=== PATIENT | male | born 1975 | race Two or more races ===

== ENCOUNTER 2022-02-01 18:36 | Emergency (ER) | payer SELFPAY ==
[~2022-02-01] VITALS: Ht 170.2 cm; Wt 72.6 kg
[2022-02-01] MEDS ORDERED: LORAZEPAM 1 MG TABLET PO ONE (19:00)
[2022-02-01] MEDS ORDERED: LORAZEPAM 1 MG TABLET ONE (19:01)
--- NOTE | 2022-02-01 19:07 | NUR ---
Medicated as per orders. Labs drawn by [employer] driver
--- NOTE | 2022-02-01 19:28 | NUR ---
Endorsed care to [place]
[2022-02-01 19:53] LABS: BASOPHILS % (AUTO) 0.2 % (0.0-2.0); EOSINOPHILS % (AUTO) 0.9 % (0.0-6.0); HEMATOCRIT 38 % (39-51); HEMOGLOBIN 12.7 g/dL (13.5-17.5); LYMPHOCYTES # (AUTO) 1.6 K/uL (0.8-4.8); LYMPHOCYTES % (AUTO) 25.3 % (20.0-44.0); MEAN CORPUSCULAR HGB CONC 34 g/dl (31.0-36.0); MEAN CORPUSCULAR VOLUME 88 fL (80-96); MONOCYTES # (AUTO) 0.4 K/uL (0.1-1.30); MONOCYTES % (AUTO) 6.4 % (2.0-12.0); NEUTROPHILS # (AUTO) 4.3 K/uL (1.8-8.9); NEUTROPHILS % (AUTO) 67.2 % (43.0-81.0); PLATELET COUNT (AUTO) 183 K/uL (150-450); RED BLOOD CELL COUNT(AUTO) 4.33 MIL/uL (4.5-6.0); WHITE BLOOD COUNT (AUTO) 6.4 K/uL (4.3-11.0)
[2022-02-01] MEDS ORDERED: CYCL5TAB PO (20:21)
[2022-02-01] MEDS ORDERED: IBUP-1955 PO (20:21)
[2022-02-01] MEDS ORDERED: IBUPROFEN 600 MG TABLET PO ONE (20:30)
[2022-02-01] MEDS ORDERED: LORAZEPAM INJ 2 MG/ML VIAL IV ONE (20:30)
[2022-02-01] MEDS ORDERED: IBUPROFEN 600 MG TABLET ONE (20:30)
[2022-02-01 22:38] LABS: ALBUMIN 3.5 g/dL (3.4-5.0); BILIRUBIN,DIRECT 0.1 mg/dL (0.0-0.2); BILIRUBIN,TOTAL 0.4 mg/dL (0.2-1.0); POTASSIUM 3.8 mmol/L (3.5-5.1); TOTAL PROTEIN, SERUM 6.8 g/dL (6.4-8.2)
--- NOTE | 2022-02-01 22:59 | NUR ---
pt ok to be discharged per dr avila, Patient discharged to home in stable condition. Written and verbal after care instructions given. Patient verbalizes understanding of instruction.Patient is awake and alert to self, day, and place. pt ambulatory with a steady gait
[2022-02-01 23:00] VITALS: BP 127/79
== END 2022-02-01 23:00 | disposition home or self-care (01) ==
LOC: ER 18:52
DX: F41.9 Anxiety disorder, unspecified (principal); M54.12 Radiculopathy, cervical region; Z60.2 Problems related to living alone; Z79.899 Other long term (current) drug therapy
CPT/HCPCS: 36415; 80048-TC; 80076-TC; 85025-TC; G0480

== ENCOUNTER 2022-02-02 12:02 | Emergency (ER) | payer SELFPAY ==
[~2022-02-02] VITALS: Ht 170.2 cm; Wt 72.6 kg
[~2022-02-02 12:02] MED LIST: CYCL5TAB PO; IBUP-1955 PO
[2022-02-02 12:08] VITALS: BP 130/80
--- NOTE | 2022-02-02 12:19 | NUR ---
For discharge - Eloped Prior to [facility] Ambulatory gait steady
== END 2022-02-02 12:19 | disposition home or self-care (01) ==
LOC: ER 12:02
DX: R52 Pain, unspecified (principal); Z76.5 Malingerer [conscious simulation]; Z59.00 Homelessness unspecified